=== PATIENT | female | born 1990 | race Caucasian/White ===

== ENCOUNTER 2016-12-12 17:34 | Emergency (ER) | payer OTHER ==
[2016-12-12 17:35] VITALS: O2SAT 97
[2016-12-12 17:55] VITALS: PULSE 89; RESP 18; TEMP 98.5
[2016-12-12] MEDS ORDERED: BUPIVACAINE HCL 0.25% MPF 10 ML SOL INFIL ONE ×2 (17:59→18:01)
[2016-12-12] MEDS ORDERED: BUPIVACAINE HCL 0.5% MPF 10 ML SOL ONE (18:01)
[2016-12-12 18:27] VITALS: BP 120/74
== END 2016-12-12 18:22 | disposition home or self-care (01) ==
LOC: ED 17:34
DX: K08.89 Other specified disorders of teeth and supporting structures (principal)
CPT/HCPCS: 99282

== ENCOUNTER 2016-12-25 05:16 | Emergency (ER) | payer OTHER ==
[2016-12-25 05:32] VITALS: BP 123/96; PULSE 94; RESP 16; TEMP 98.2; O2SAT 99
[2016-12-25] MEDS ORDERED: KETOROLAC TROMETHAMINE 30 MG/ML SOL IM ONE (05:49)
[2016-12-25] MEDS ORDERED: KETOROLAC TROMETHAMINE 30 MG/ML SOL ONE (05:52)
== END 2016-12-25 06:03 | disposition home or self-care (01) ==
LOC: ED 05:16
DX: K08.89 Other specified disorders of teeth and supporting structures (principal)
CPT/HCPCS: 96372; 99282; 99283; J1885

== ENCOUNTER 2017-05-04 14:58 | Emergency (ER) | payer OTHER ==
[2017-05-04 15:18] VITALS: BP 135/85; PULSE 92; RESP 16; TEMP 97.6; O2SAT 98
== END 2017-05-04 15:41 | disposition home or self-care (01) ==
LOC: ED 14:58
DX: F32.9 Major depressive disorder, single episode, unspecified (principal)
CPT/HCPCS: 99282

== ENCOUNTER 2017-12-03 17:41 | Emergency (ER) | payer OTHER ==
[2017-12-03 18:57] VITALS: BP 128/86; PULSE 51; RESP 18; TEMP 99; O2SAT 98
== END 2017-12-03 18:50 | disposition home or self-care (01) ==
LOC: ED 17:41
DX: S61.202A Unspecified open wound of right middle finger without damage to nail, initial encounter (principal)
CPT/HCPCS: 73140; 99282; 99284; A6402

== ENCOUNTER 2018-06-25 21:04 | Emergency (ER) | payer BC, OTHER ==
[2018-06-25 21:15] VITALS: RESP 18; TEMP 98.2
[2018-06-25 22:42] VITALS: BP 117/83; PULSE 73; O2SAT 100
== END 2018-06-25 22:20 | disposition home or self-care (01) | DRG 605 ==
LOC: ED 21:04
DX: S70.01XA Contusion of right hip, initial encounter (principal); W00.0XXA Fall on same level due to ice and snow, initial encounter
CPT/HCPCS: 73501; 99282; 99283